=== PATIENT | male | born 1955 | race Caucasian/White ===

== ENCOUNTER 2024-09-07 12:39 | Outpatient (AMB) | payer MEDICARE, SELFPAY ==
[2024-09-07 12:42] VITALS: BP 124/68; PULSE 86; O2SAT 96; BMI 25.7
--- NOTE | 2024-09-07 12:42 | MHC.OFFVIS ---
Vital Signs 09/07/24 12:42 Height 6 ft Weight 189 lb 4 oz BMI 25.7 BP 124/68 Blood Pressure Location Lt brachial Position Sitting Pulse 86 Pulse Source Pulse Oximeter Pulse Oximetry (%) 96 Oxygen Delivery Method Room Air Intake Visit Reasons: knee OA Intake Note: Patient presents for follow up on knee OA, he last saw Dr. Hsieh a couple of years ago at [facility] Allergies No Known Allergies Allergy (Verified 09/07/24 12:53) HPI HPI knee OA: Details: Noticing increase knee pain in the last month. No nocturnal knee pain. Exercises every other day. He had gel 1 injections to bilateral knees 02/2024. Uses a half aleve a few times a week. He notices increased joint pain overall after having more than 1 beers on the weekend. [facility] Medical History (Updated 09/07/24 @ 22:01 by Constantin Hsieh MD) Osteoarthritis Surgical History (Updated 09/07/24 @ 12:54 by Anna Vera CMA) H/O colonoscopy H/O removal of cyst Family History (Updated 09/07/24 @ 12:54 by Anna Vera CMA) Mother Osteoarthritis Social History (Updated 09/07/24 @ 12:56 by Anna Vera CMA) Household Members: Family Alcohol intake: current Alcohol intake frequency: 0-2 drinks per day Comment: A few times a week Patient Tobacco Use Status: Never used Tobacco Review of Systems Const All systems reviewed & are unremarkable except as noted in HPI and below Physical Exam Vital Signs: Last Vital Signs Pulse 86 09/07/24 12:42 BP 124/68 09/07/24 12:42 Pulse Ox 96 09/07/24 12:42 Oxygen Delivery Method Room Air 09/07/24 12:42 BMI result Body Mass Index 25.7 Const Other: General: Comfortable Skin: No lesions seen MSK: Tender bilateral knees along joint line. No effusion. Good bilateral knee flexion and extension. Good bilateral hip external rotation, extention and flexion. Assessment & Plan Assessment & Plan (1) long-term (current) use of non-steroidal anti-inflammatories (nsaid): Code(s): Z79.1 - long-term (current) use of non-steroidal anti-inflammatories (NSAID) Category: Medical (2) Osteoarthritis of knees, bilateral: Comment: Pain in bilateral knees have returned after gel 1 injection. Had at least 5 months of benefit with no knee pain after gel 1 injections. Pain is tolerable. History: Failed 2 cortisone injections by ortho to right knee. Brace helps. He presented with nocturnal knee pain. Completed physical therapy with benefit. Failed meloxicam. Has benefit on naproxen/aleve PM. He had right knee Euflexxa 11/2022, bilateral knee Gel-One 08/2023 and 02/2024. Code(s): M17.0 - Bilateral primary osteoarthritis of knee Category: Medical Qualifiers: Osteoarthritis type: primary Qualified Code(s): M17.0 - Bilateral primary osteoarthritis of knee Plan: PA bilateral knee gel 1 injections I recommended that he try Tylenol 500 mg or [address] of Aleve q.h.s. prn knee pain. We discussed GI risk of taking NSAIDs after alcohol intake and risk of liver toxicity with alcohol and Tylenol use concurrently. I recommended that he avoid alcohol as it is contributing to increased joint pain. I recommend that he reduce water intake from 120oz to 64oz as there is a risk of drinking too much water. At least 20% of daily water intake is obtained from diet. Baseline labs ordered Plan . Orders: Orders Aspartate Amino Transferase Today Z79.1 - long-term (current) use of non-steroidal anti-inflammatories (NSAID) Alanine Aminotransferase Today Z79.1 - terminal press operator (current) use of non-steroidal anti-inflammatories (NSAID) Creatinine Today Z79.1 - long-term (current) use of non-steroidal anti-inflammatories (NSAID) Complete Blood Count Auto Diff Today Z79.1 - terminal press operator (current) use of non-steroidal anti-inflammatories (NSAID) Coding Level of Care Code Est Pt Level 4 (39812) Complex EM visit Add On G2211 Diagnoses long-term (current) use of non-steroidal anti-inflammatories (nsaid) Z79.1 Primary osteoarthritis of both knees M17.0 Osteoarthritis type: primary Time Spent (min) 20
== END 2024-09-07 13:20 | disposition home or self-care (01) ==
PROVIDERS: PCP Internal Medicine; Visit Provider Internal Medicine Rheumatology
DX: Z79.1 Long term (current) use of non-steroidal anti-inflammatories (NSAID) (principal); M17.0 Bilateral primary osteoarthritis of knee
CPT/HCPCS: 99214; G2211

== ENCOUNTER 2024-09-07 12:39 | Outpatient (REF) | payer MEDICARE, SELFPAY ==
[2024-09-07 17:37] LABS: MANUAL DIFF FLAG NO
[2024-09-07 17:50] LABS: Basophils Percent Auto 0.4 % (0-2); Eosinophils Percent Auto 0.5 % (0-4); Hemoglobin 13.9 g/dl (14.0-18.0); Imm Gran Abs Auto 0.02 X10*3/uL (0.00-0.03); Imm Gran Pct Auto 0.3 % (0.0-0.4); Lymphocytes Absolute Auto 1.1 X10*3/uL (1.2-4.9); Lymphocytes Percent Auto 14.6 % (20-40); Mean Corpuscular HGB Conc 33.1 g/dl (31.0-36.0); Mean Corpuscular Hemoglobin 29.5 pg (27.0-33.0); Mean Corpuscular Volume 89.2 fL (80.0-98.0); Mean Platelet Volume 12.1 fL (9.4-12.4); Monocytes Absolute Auto 0.6 X10*3/uL (0.1-1.2); Monocytes Percent Auto 7.2 % (2-11); Platelet Count 211 X10*3/uL (160-400); Red Blood Count 4.71 X10*6/uL (4.60-5.80); Red Cell Distribution Width 12.7 % (11.0-16.0); White Blood Count 7.7 X10*3/uL (4.8-10.8)
[2024-09-07 18:14] LABS: Alanine Aminotransferase 20 U/L (0-40); Aspartate Amino Transferase 27 U/L (5-37); Estimated Glomerular Filt Rate > 60
== END 2024-09-07 12:40 | disposition home or self-care (01) ==
LOC: HO.HKASLDS 12:39
PROVIDERS: PCP Internal Medicine; Visit Provider Internal Medicine Rheumatology
DX: M17.0 Bilateral primary osteoarthritis of knee (principal); Z79.1 Long term (current) use of non-steroidal anti-inflammatories (NSAID)
CPT/HCPCS: 36415; 82565; 84450; 84460; 85025; 99212

== ENCOUNTER 2024-10-05 12:30 | Outpatient (AMB) | payer MEDICARE, SELFPAY ==
--- NOTE | 2024-10-05 12:36 | A.OFFVIS_ITS ---
Vital Signs 10/05/24 12:38 Height 6 ft Weight 186 lb 4.65 oz BMI 25.3 BP 140/80 H Blood Pressure Location Lt brachial Position Sitting Pulse 94 Pulse Source Pulse Oximeter Pulse Oximetry (%) 96 Oxygen Delivery Method Room Air Intake Visit Reasons: gel injection one Allergies No Known Allergies Allergy (Verified 10/05/24 12:39) HPI HPI gel injection one: Details: He feels well. He had a viral illness and stopped drinking alcohol. For the last 3 weeks he has had decreased joint pain. He continues to hydrate well. He continues to exercise regularly. [facility] Medical History Osteoarthritis Surgical History H/O colonoscopy H/O removal of cyst Family History Mother Osteoarthritis Social History Household Members: Family Alcohol intake: current Alcohol intake frequency: 0-2 drinks per day Comment: A few times a week Patient Tobacco Use Status: Never used Tobacco Review of Systems Const All systems reviewed & are unremarkable except as noted in HPI and below Physical Exam Vital Signs: Last Vital Signs Pulse 94 10/05/24 12:38 BP 140/80 H 10/05/24 12:38 Pulse Ox 96 10/05/24 12:38 Oxygen Delivery Method Room Air 10/05/24 12:38 BMI result Body Mass Index 25.3 Const Other: General: Comfortable Skin: No lesions seen MSK: Tender bilateral knees along joint line. No effusion. Good bilateral knee flexion and extension. Good bilateral hip external rotation, extention and flexion. Office Procedures AMB Joint Injection/Aspiration Joint Injection/Aspiration Details: Bilateral knees Prep: site was prepped using aseptic technique Injected: Gel One 3mL was injected into each knee using 25 gauge 1-1/2 inch needle Procedure: The patient tolerated the procedure well. Postprocedure protocol was discussed with patient. Coding - Bilateral Large Joint Procedure code (CPT) selection complete AMB Joint Injection/Aspiration Coding 51193 - Bilateral Large Joint Procedure code (CPT) selection complete Office Meds Gel-One 30 mg/3 mL intra-articular syringe Performing Provider: Constantin Hsieh MD Performing Location: [facility] [facility] Administered by: Constantin Hsieh MD on 10/05/24 22:46 Dose Route Admin Location Dispensed Lot Number Expiration Date [facility] Software Verification Engineer 30 mg intra-articular 3 mL [id number] Gel-One 30 mg/3 mL intra-articular syringe Performing Provider: Constantin Hsieh MD Performing Location: [facility] Administered by: Constantin Hsieh MD on 10/05/24 22:46 Dose Route Admin Location Dispensed Lot Number Expiration Date [facility] Software Verification Engineer 30 mg intra-articular 3 mL [id number] Assessment & Plan Assessment & Plan (1) Osteoarthritis of knees, bilateral: Comment: Patient is here for bilateral gel one injections. History: Failed 2 cortisone injections by ortho to right knee. Brace helps. He presented with nocturnal knee pain. Completed physical therapy with benefit. Failed meloxicam. Has benefit on naproxen/aleve PM. He had right knee Euflexxa 11/2022, bilateral knee Gel-One 08/2023 , 02/2024, 10/05/2024. Code(s): M17.0 - Bilateral primary osteoarthritis of knee Category: Medical Qualifiers: Osteoarthritis type: primary Qualified Code(s): M17.0 - Bilateral primary osteoarthritis of knee Plan: Patient received bilateral Gel One injections today Continue exercise program Use knee brace as needed He will avoid alcohol as it has provided decrease overall pain Return to clinic in 6 months for bilateral knee Gel One injections Orders: Orders AMB Joint Injection/Aspiration Today M17.0 - Bilateral primary osteoarthritis of knee AMB Joint Injection/Aspiration Today M17.0 - Bilateral primary osteoarthritis of knee Medications: New Gel-One (hyaluronate sod, cross-linked) 30 mg (3 mL) intra-articular ONCE 3 mL 0RF NS M17.0 - Bilateral primary osteoarthritis of knee Gel-One (hyaluronate sod, cross-linked) 30 mg (3 mL) intra-articular ONCE 3 mL 0RF NS M17.0 - Bilateral primary osteoarthritis of knee Coding Level of Care Code Est Pt Level 4 (80601) Diagnoses Primary osteoarthritis of both knees M17.0 Osteoarthritis type: primary CPT Codes Coding - 73819 - Bilateral Large Joint: 07550 - Bilateral Large Joint ([id number]) Coding - 82357 - Bilateral Large Joint: 65072 - Bilateral Large Joint ([id number]) Time Spent (min) 20
[2024-10-05 12:38] VITALS: BP 140/80; PULSE 94; O2SAT 96; BMI 25.3
== END 2024-10-05 14:03 | disposition home or self-care (01) ==
PROVIDERS: PCP Internal Medicine; Visit Provider Internal Medicine Rheumatology
DX: M17.0 Bilateral primary osteoarthritis of knee (principal)
CPT/HCPCS: 20610

== ENCOUNTER → 2024-10-05 12:30 | Outpatient (BNVA) | payer MEDICARE, SELFPAY | PROVIDERS: PCP Internal Medicine; Visit Provider Internal Medicine Rheumatology | DX: M17.0 Bilateral primary osteoarthritis of knee (principal) | CPT/HCPCS: 20610; J7326 ==

== ENCOUNTER 2025-04-06 12:29 | Outpatient (AMB) | payer MEDICARE, SELFPAY ==
[2025-04-06 12:40] VITALS: BP 120/68; PULSE 77; O2SAT 99; BMI 25.3
--- NOTE | 2025-04-06 12:40 | A.OFFVIS_ITS ---
Vital Signs 04/06/25 12:40 Height 6 ft Weight 186 lb 8.177 oz BMI 25.3 BP 120/68 Blood Pressure Location Rt brachial Position Sitting Pulse 77 Pulse Source Pulse Oximeter Pulse Oximetry (%) 99 Oxygen Delivery Method Room Air Intake Visit Reasons: 6 months gel one Intake Note: Patient presents for an OA follow up. Accompanied by: Self / Same As Patient Allergies No Known Allergies Allergy (Verified 04/06/25 12:40) HPI HPI 6 months gel one: Details: Last injections worked for 3 months. He has weakness of lower extremities. L>R pain. He has sharp pain at times that is positional. He is walking with his feet everted, which provides relief in his knee. He denies having nocturnal knee pain. Leg weakness progressive over two years. Hard to lift legs in the morning. Tripping when going up the stairs. He completed PT and has been compliant with exercises. He also continues to be compliant with going to the gym regularly. He saw Neurology who is working him up with an MRI of lumbar spine. Neurologists is worried that he has L1-L2 spinal stenosis contributing to weakness in his lower extremities. He saw orthopedic surgeon who was concerned that he has meniscal tear and requested that he have a CT of his knee and not an MRI. He recommended knee replacement. Patient is not keen on having a knee replacement any time soon. [facility] Medical History Osteoarthritis Surgical History H/O colonoscopy H/O removal of cyst Family History Mother Osteoarthritis Social History Household Members: Family Alcohol intake: current Alcohol intake frequency: 0-2 drinks per day Comment: A few times a week Patient Tobacco Use Status: Never used Tobacco Physical Exam Vital Signs: Last Vital Signs Pulse 77 04/06/25 12:40 BP 120/68 04/06/25 12:40 Pulse Ox 99 04/06/25 12:40 Oxygen Delivery Method Room Air 04/06/25 12:40 BMI result Body Mass Index 25.3 Const Other: General: Comfortable Skin: No lesions seen MSK: Tender bilateral knees along joint line. No effusion. Good bilateral knee flexion and extension. Good bilateral hip external rotation, extention and flexion. Power 4/5 bilateral hip flexors, rest of lower extremities 5/5. Office Procedures AMB Joint Injection/Aspiration Joint Injection/Aspiration Details: Bilateral knees Prep: site was prepped using aseptic technique Injected: Gel 1 was injected into each knee using 22 gauge 1-1/2 inch needle Procedure: Informed verbal consent was obtained. The patient tolerated the procedure well. Postprocedure protocol was discussed with patient. Coding 01422 - Large joint Procedure code (CPT) selection complete AMB Joint Injection/Aspiration Coding 01283 - Large joint Procedure code (CPT) selection complete Office Meds Gel-One 30 mg/3 mL intra-articular syringe Performing Provider: Constantin Hsieh MD Performing Location: [facility] [place] [facility] Administered by: Alan Hawk RN on 04/06/25 13:20 Dose Route Admin Location Dispensed Lot Number Expiration Date [facility] Farm Management Professor 30 mg intra-articular 3 mL [id number] 10/30/26 [address]47-[address] [employer] Total Dispensed Waste 3 mL 0 % Gel-One 30 mg/3 mL intra-articular syringe Performing Provider: Constantin Hsieh MD Performing Location: [facility] [place] [facility] Administered by: Alan Hawk RN on 04/06/25 13:20 Dose Route Admin Location Dispensed Lot Number Expiration Date [place] [employer] Professor 30 mg intra-articular 3 mL [id number] 10/30/26 [id number] [employer] Total Dispensed Waste 3 mL 0 % Results Reviewed Results Reviewed: Lab reviewed from patient's portal from 04/05/2025, which reveal mild leukopenia, normal CRP and CK. Assessment & Plan Assessment & Plan (1) Weakness of lower extremity: Comment: Proximal muscle lower extremity weakness. He is compliant with physical therapy exercises daily and continues to go to the gym. Recent workup revealed normal CRP and CK. We discussed further workup. Code(s): R29.898 - Other symptoms and signs involving the musculoskeletal system Category: Medical Plan: ESR, aldolase ordered EMG of lower extremities Follow up with Neurology for MRI L-spine (2) Osteoarthritis of knees, bilateral: Comment: Patient is here for bilateral gel one injections. Last set of injections lasted 3 months but is controlling his nocturnal knee pain. He agreed to try gel 1 again this visit History: Failed 2 cortisone injections by ortho to right knee. Brace helps. He presented with nocturnal knee pain. Completed physical therapy with benefit. Failed meloxicam. Has benefit on naproxen/aleve PM. He had right knee Euflexxa 11/2022, bilateral knee Gel-One 08/2023 , 02/2024, 10/05/2024. Code(s): M17.0 - Bilateral primary osteoarthritis of knee Category: Medical Qualifiers: Osteoarthritis type: primary Qualified Code(s): M17.0 - Bilateral primary osteoarthritis of knee Plan: Patient received bilateral knee gel 1 injections this visit Return to clinic in 6 months Orders: Orders NE electromyogram (EMG) Today R29.898 - Other symptoms and signs involving the musculoskeletal system Erythrocyte Sedimentation Rate Today R29.898 - Other symptoms and signs involving the musculoskeletal system, Z79.899 - Other terminal block assembler (current) drug therapy NE nerve conduction velocity Today R29.898 - Other symptoms and signs involving the musculoskeletal system Aldolase Today R29.898 - Other symptoms and signs involving the musculoskeletal system AMB Joint Injection/Aspiration Today M17.0 - Bilateral primary osteoarthritis of knee AMB Joint Injection/Aspiration Today M17.0 - Bilateral primary osteoarthritis of knee Coding Level of Care Code Est Pt Level 4 (92305) Complex EM visit Add On G2211 Diagnoses Weakness of lower extremity R29.898 Primary osteoarthritis of both knees M17.0 Osteoarthritis type: primary CPT Codes Coding - 24267 Large joint: 58063 - Large joint ([id number]) Coding - 15477 Large joint: 51446 - Large joint ([id number])
--- OUTSIDE RECORDS SUMMARY | 2025-04-06 13:14 | XMS_ITS | Clinical Summary ---
Author Organization [facility] Address [address] [place] [id number] Phone Care Team Providers Care Internet Project Manager Name Role Phone Harris Harris MD Primary Care Provider [phone] Allergies No known active allergies Social History Tobacco Use Types Packs/Day Years Used Date Smoking Tobacco: Never Sex and Gender Information Value Date Recorded Sex Assigned at Not on file Legal Sex Male 6:03 PM EST Gender Identity Not on file Sexual Orientation Not on file Plan of Treatment Not on file Medical Devices Not on file Care Teams Internet Project Manager Relationship Specialty Start Date End Date Harris Harris MD [address] [facility], [facility] [address] [facility] [address] [place] [address] PCP - General Internal Medicine 08/20/18 Additional Source Comments The information contained in this document represents components of the legal health record. It is not the complete legal health record.[facility]
== END 2025-04-06 13:17 | disposition home or self-care (01) ==
LOC: HO.RHES 12:30
PROVIDERS: PCP Internal Medicine; Visit Provider Internal Medicine Rheumatology
DX: R29.898 Other symptoms and signs involving the musculoskeletal system (principal); M17.0 Bilateral primary osteoarthritis of knee
CPT/HCPCS: 20610; 99214

== ENCOUNTER → 2025-04-06 12:29 | Outpatient (BNVA) | payer MEDICARE, SELFPAY | PROVIDERS: PCP Internal Medicine; Visit Provider Internal Medicine Rheumatology | DX: M17.0 Bilateral primary osteoarthritis of knee (principal); R53.1 Weakness | CPT/HCPCS: 20610; 99212; J7326 ==

== ENCOUNTER 2025-06-14 08:49 | Outpatient (REF) | payer MEDICARE, SELFPAY ==
--- NOTE | ~2025-06-14 | MR_ITS ---
EXAMINATION: MR KNEE WITHOUT CONTRAST, LEFT CLINICAL INFORMATION: Knee pain, osteoarthritis COMPARISON: None available. TECHNIQUE: MRI of the knee without contrast was performed using routine sequences on a high-field scanner. FINDINGS: MENISCI: Medial Meniscus: Complex irregular tearing involving the articular surfaces and free edge in the posterior horn and body. Body is partially medially extruded. Lateral Meniscus: Anterior root degenerative fraying. Mild degenerative fraying of the posterior root/central posterior horn. Degenerative signal in the body, with signal extending to the undersurface could reflect fraying/tear. LIGAMENTS: Cruciate: Intact Collateral: Intact EXTENSOR MECHANISM: Intact ARTICULAR CARTILAGE/BONE: Patellofemoral Compartment: Minimal arthritis Medial Compartment: Severe arthritis. Broad area of full-thickness chondral loss, prominent medial tibial plateau and femoral condyle cysts/edema Lateral Compartment: Mild arthritis Moderate arthritis of the proximal tibiofibular articulation.. No acute fracture. JOINT FLUID AND BURSAE: Small effusion. Trace Becker's cyst. MR/MR knee LT wo con IMPRESSION: * Tear of the medial meniscal posterior horn and body. * Degenerative fraying/tear of the lateral meniscus as detailed above. *Tricompartment arthritis. Severe medial compartment arthritis. Moderate proximal tibia-fibula articulation arthritis. * Small effusion. Trace Becker's cyst. Electronically signed by: Jj Walter MD 06/15/2025 08:02 AM [facility]
--- NOTE | 2025-06-14 08:54 | EMG_ITS ---
Chief complaint:?R29.898 Other symptoms and signs involving the musculoskeletal system Reason for referral: Weakness of lower extremities Referred by:?Constantin Hsieh MD Procedure done: Bilateral lower extremities NCS/EMG Bilateral peroneal and tibial motor studies were performed. Bilateral superficial peroneal, sural, and median and lateral mixed plantars sensory studies were performed and tibial H reflexes were obtained. Paraspinal muscles and left limb muscles were tested with EMG. Findings: Superficial peroneal and sural sensory studies did not reveal any significant abnormality. Median and lateral mixed plantars sensory studies revealed mild reduction of amplitude. Bilateral peroneal motor responses revealed mild slowing across fibular head. Otherwise no significant abnormality noted. Impression: 1. 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 2. 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
--- OUTSIDE RECORDS SUMMARY | 2025-06-14 09:18 | XMS_ITS | Clinical Summary ---
Author Organization [facility] Address [address] [place] [address] Phone Care Team Providers Care Wardrobe Assistant Name Role Phone Harris Harris MD Primary Care Provider [phone] Allergies No known active allergies Social History Tobacco Use Types Packs/Day Years Used Date Smoking Tobacco: Never Sex and Gender Information Value Date Recorded Sex Assigned at Not on file Legal Sex Male 6:03 PM EST Gender Identity Not on file Sexual Orientation Not on file Plan of Treatment Not on file Medical Devices Not on file Care Teams Wardrobe Assistant Relationship Specialty Start Date End Date Harris Harris MD [address] [facility], [facility] [address] [facility] [address] [place] [address] PCP - General Internal Medicine 08/20/18 Additional Source Comments The information contained in this document represents components of the legal health record. It is not the complete legal health record.[facility]
== END 2025-06-14 08:50 | disposition home or self-care (01) ==
LOC: HO.NEURO 08:49
PROVIDERS: PCP Internal Medicine; Visit Provider Internal Medicine Rheumatology
DX: R29.898 Other symptoms and signs involving the musculoskeletal system (principal); M17.0 Bilateral primary osteoarthritis of knee
CPT/HCPCS: 73721; 95886; 95913

== ENCOUNTER → 2025-06-14 08:54 | Outpatient (BNV) | payer MEDICARE, SELFPAY | PROVIDERS: PCP Internal Medicine; Visit Provider Psychiatry & Neurology Neurology | DX: G62.89 Other specified polyneuropathies (principal) | CPT/HCPCS: 95886; 95913 ==

== ENCOUNTER → 2025-06-14 09:54 | Outpatient (BNV) | payer MEDICARE, SELFPAY | PROVIDERS: PCP Internal Medicine; Visit Provider Radiology Diagnostic Ultrasound | DX: M17.12 Unilateral primary osteoarthritis, left knee (principal); M25.462 Effusion, left knee; M23.322 Other meniscus derangements, posterior horn of medial meniscus, left knee | CPT/HCPCS: 73721 ==